=== PATIENT | female | born 1975 | race Caucasian/White ===

== ENCOUNTER 2018-05-30 09:52 | Emergency (ER) | payer OTHER ==
[2018-05-30] MEDS ORDERED: CLINDAMYCIN 600 MG INJ IV (11:00)
[2018-05-30 11:16] LABS: URINE BLOOD (Dip) POC 2+ (NEGATIVE); URINE GLUCOSE (Dip) POC Negative (NEGATIVE); URINE KETONES (Dip) POC Negative (NEGATIVE); URINE LEUKOCYTE EST (Dip) POC 3+ (NEGATIVE); URINE NITRITE (Dip) POC Negative (NEGATIVE); URINE TOTAL PROTEIN POC 1+ (NEGATIVE)
[2018-05-30] MEDS: KETOROLAC 15 MG INJ IV (11:29)
[2018-05-30] MEDS: DEXAMETHASONE 10 MG/ML 1 ML INJ IV (11:29)
[2018-05-30] MEDS: SOD CHLORIDE 0.9% 500 ML IV (11:32)
[2018-05-30] MEDS: CLINDAMYCIN 600 MG/D5W (PMX) 50 ML IVPB (11:32)
[2018-05-30] MEDS: ACETAMINOPHEN 325 MG TAB PO (11:49)
== END 2018-05-30 12:34 | disposition home or self-care (01) ==
LOC: FTE 09:52
DX: J03.90 Acute tonsillitis, unspecified (principal)
CPT/HCPCS: 81003; 81025; 96374; 96375; 99284-25